=== PATIENT | male | born 1975 | race African-American/Black ===

== ENCOUNTER 2024-02-29 16:24 | Emergency (ER) | payer OTHER, SELFPAY ==
[2024-02-29] MEDS ORDERED: GABAPENTIN 300 MG CAP ONE (17:07)
[2024-02-29] MEDS ORDERED: KETOROLAC 30 MG/ML INJ ONE (17:07)
[2024-02-29] MEDS ORDERED: CYCLOBENZAPRINE 10 MG TAB ONE (17:07)
--- NOTE | 2024-02-29 17:25 | EDPHYS ---
Physician Documentation [facility] Name: Edis Kurtz Age: 48 yrs Sex: Male : 1975 Arrival Date: 02/29/2024 Time: 16:24 Bed 20 Private MD: ED Physician Ramón Dan HPI: 02/28 17:02 This 48 yrs old Black Male presents to ER via Ambulatory with complaints of Pain. rn 17:02 The symptoms are located in the low back. Onset: The symptoms/episode began/occurred at rn an unknown time. The pain radiates to the buttocks. Associated signs and symptoms: Pertinent negatives: abdominal pain, chest pain, dysuria, hematuria, incontinence, nausea, numbness, tingling, urinary retention. Modifying factors: The patient symptoms are alleviated by nothing, the patient symptoms are aggravated by any movement, bending. Severity of symptoms: At their worst the symptoms were moderate, in the emergency department the symptoms are unchanged. The patient has experienced similar episodes in the past. The patient has not recently seen a physician. Patient reports right lower back pain and buttock pain, has had it for years, has chronic back pain, not improving this time with the regular treatments. Has tried lidocaine patches and [id number] medication and not working. Worse at work, walks a lot, spends a lot of time on his feet and moving heavy C arm. Denies direct trauma or fall. No bowel or bladder issues. No weakness. Same pain that he has had in the past location just not improving this time around.. 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 - Infectious Disease History:: Denies. - Social history:: Smoking status: Patient denies any tobacco usage or history of. - Family history:: not pertinent. - Hospitalizations: : No recent hospitalization is reported. ROS: 17:02 Constitutional: Negative for fever, chills, and weight loss, Neck: Negative for injury, rn pain, and swelling, Cardiovascular: Negative for chest pain, palpitations, and edema, Respiratory: Negative for shortness of breath, cough, wheezing, and pleuritic chest pain, Abdomen/GI: Negative for abdominal pain, nausea, vomiting, diarrhea, and constipation, Back: Positive for back pain, negative for injury : Negative for injury, bleeding, discharge, and swelling, MS/Extremity: Negative for injury and deformity, Skin: Negative for injury, rash, and discoloration, Neuro: Negative for headache, weakness, numbness, tingling, and seizure, Exam: 17:02 Constitutional: This is a well developed, well nourished patient who is awake, alert, rn and in no acute distress. Ambulatory to room without assistance Back: No midline spinal tenderness. Mild right lower back and pain in area just above right gluteus. MS/ Extremity: Pulses equal, no cyanosis. Neurovascular intact. Full, normal range of motion. Equal circumference. Neuro: Awake and alert. Motor strength 5/5 in all extremities. Sensory grossly intact. Vital Signs: 16:35 BP 142 / 103; Pulse 110; Resp 16; Temp 97.1; Pulse Ox 99% ; ko1 17:37 BP 140 / 90; Pulse 100; Resp 19 S; Pulse Ox 99% on R/A; Pain 6/10; kc6 17:37 Pain Scale: Adult kc6 MDM: 16:39 Medical Screening Exam initiated rn 17:24 Differential diagnosis: arthritis, chronic back pain, Sacroiliitis, neuropathy, rn radiculopathy. Data reviewed: vital signs, nurses notes, and as a result, I will discharge patient. Counseling: I had a detailed discussion with the patient and/or guardian regarding the historical points, exam findings, and any diagnostic results supporting the discharge/admit diagnosis, the need for outpatient follow up, to return to the emergency department if symptoms worsen or persist or if there are any questions or concerns that arise at home. Response to treatment: the patient's symptoms have mildly improved after treatment, and as a result, I will discharge patient. Special discussion: I discussed with the patient/guardian in detail that at this point there is no indication for admission to the hospital. It is understood, however, that if the symptoms persist or worsen the patient needs to return immediately for re-evaluation. Based on the history and exam findings, there is no indication for further emergent testing or inpatient evaluation. I discussed with the patient/guardian the need to see the back specialist for further evaluation of the symptoms. I discussed with the patient/guardian the need to see the primary care provider for further evaluation of the symptoms. Administered Medications: 17:12 Drug: Ketorolac IM 30 mg IM once Route: IM; Site: left deltoid; kc6 17:36 Follow up: Response: No adverse reaction; Pain is decreased kc6 17:12 Drug: Gabapentin PO 300 mg PO once Route: PO; kc6 17:36 Follow up: Response: No adverse reaction kc6 17:12 Drug: Cyclobenzaprine PO 10 mg PO once Route: PO; kc6 17:36 Follow up: Response: No adverse reaction; Pain is decreased kc6 Disposition Summary: 02/29/24 17:25 Discharge Ordered Notes: Location: Home rn Problem: an ongoing problem rn Symptoms: have improved rn Condition: Stable rn Diagnosis - Sacroiliitis, not elsewhere classified rn Followup: rn - With: Private Physician - When: As needed - Reason: Recheck today's complaints, Re-evaluation by your physician Discharge Instructions: - Discharge Summary Sheet rn - Sacroiliac Joint Dysfunction rn Forms: - Medication Reconciliation Form rn - Antibiotic rn medication - Prescription Opioid Use rn - Patient Portal Instructions rn - Leadership Thank You Letter rn Prescriptions: - gabapentin 100 mg Oral capsule - take 1 capsule ORAL route 2 times per day As needed; 20 capsule; Refills: 0, rn Product Selection Permitted - Cyclobenzaprine 10 mg Oral tablet - take 1 tablet ORAL route once daily at bedtime As needed; 14 tablet; Refills: rn 0, Product Selection Permitted - Diclofenac Sodium 75 mg Oral tablet, delayed release (enteric coated) - take 1 tablet ORAL route 2 times per day As needed; 30 tablet; Refills: 0, rn Product Selection Permitted Signatures: Ramón Dan MD MD rn Campbell, Kaitlyn RN RN kc6 Agnes Price RN RN ko1
--- NOTE | 2024-02-29 17:25 | ER ---
Nurse's Notes [facility] Name: Edis Kurtz Age: 48 yrs Sex: Male : 1975 Arrival Date: 02/29/2024 Time: 16:24 Bed 20 Private MD: Diagnosis: Sacroiliitis, not elsewhere classified Presentation: 02/28 16:35 Chief complaint: Patient states: back pain, has back issues but it hurts more today. ko1 Coronavirus screen: At this time, the client does not indicate any symptoms associated with coronavirus-19. Ebola Screen: No symptoms or risks identified at this time. Initial Sepsis Screen: Does the patient meet any 2 criteria? No. Patient's initial sepsis screen is negative. Does the patient have a suspected source of infection? No. Patient's initial sepsis screen is negative. Risk Assessment: Do you want to hurt yourself or someone else? Patient reports no desire to harm self or others. Onset of symptoms is unknown. 16:35 Method Of Arrival: Ambulatory ko1 16:35 Acuity: RYANN 4 ko1 Triage Assessment: 16:38 General: Appears in no apparent distress. Behavior is calm, cooperative, appropriate ko1 for age. Pain: Complains of pain in back. 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 - Infectious Disease History:: Denies. - Social history:: Smoking status: Patient denies any tobacco usage or history of. - Family history:: not pertinent. - Hospitalizations: : No recent hospitalization is reported. Screenin:13 [facility] ED Fall Risk Assessment (Adult) History of falling in the last 3 months, kc6 including since admission No falls in past 3 months (0 pts) Confusion or Disorientation No (0 pts) Intoxicated or Sedated No (0 pts) Impaired Gait No (0 pts) Mobility Assist Device Used No (0 pt) Altered Elimination No (0 pt) Score/Fall Risk Level 0 - 2 = Low Risk Oriented to surroundings. Abuse screen: Denies threats or abuse. Denies injuries from another. Nutritional screening: No deficits noted. Tuberculosis screening: No symptoms or risk factors identified. Assessment: 17:12 General: Appears in no apparent distress. comfortable, well groomed, well developed, pt kc6 laying prone on the stretcher. Behavior is calm, cooperative, appropriate for age. Pain: Complains of pain in buttocks and back. Neuro: Level of Consciousness is awake, alert, obeys commands, Oriented to person, place, time, situation, Appropriate for age. Cardiovascular: Capillary refill < 3 seconds. Respiratory: Airway is patent Trachea midline Respiratory effort is even, unlabored, Respiratory pattern is regular, symmetrical. GI: No signs and/or symptoms were reported involving the gastrointestinal system. : No signs and/or symptoms were reported regarding the genitourinary system. EENT: No signs and/or symptoms were reported regarding the EENT system. Derm: No signs and/or symptoms reported regarding the dermatologic system. Skin is intact, is healthy with good turgor, Skin is pink, warm \T\ dry. Musculoskeletal: No signs and/or symptoms reported regarding the musculoskeletal system. Circulation, motion, and sensation intact. Capillary refill < 3 seconds, Range of motion: intact in all extremities. Vital Signs: 16:35 BP 142 / 103; Pulse 110; Resp 16; Temp 97.1; Pulse Ox 99% ; ko1 17:37 BP 140 / 90; Pulse 100; Resp 19 S; Pulse Ox 99% on R/A; Pain 6/10; kc6 17:37 Pain Scale: Adult kc6 ED Course: 16:27 Patient arrived in ED. mg5 16:37 Triage completed. ko1 16:38 Arm band placed on right wrist. Patient placed in an exam room, on a stretcher, on ko1 pulse oximetry, Patient notified of wait time. 16:39 Ramón Dan MD is Attending Physician. rn 17:03 Ros Pimentel, VICENTE is Primary Nurse. kc6 17:13 Patient has correct armband on for positive identification. Bed in low position. Call kc6 light in reach. Side rails up X 1. Adult w/ patient. Pulse ox on. NIBP on. Door closed. Noise minimized. Lights dimmed. Pillow given. 17:13 Patient maintains SpO2 saturation greater than 95% on room air. kc6 17:37 No provider procedures requiring assistance completed. Patient did not have IV access kc6 during this emergency room visit. Administered Medications: 17:12 Drug: Ketorolac IM 30 mg IM once Route: IM; Site: left deltoid; kc6 17:36 Follow up: Response: No adverse reaction; Pain is decreased kc6 17:12 Drug: Gabapentin PO 300 mg PO once Route: PO; kc6 17:36 Follow up: Response: No adverse reaction kc6 17:12 Drug: Cyclobenzaprine PO 10 mg PO once Route: PO; kc6 17:36 Follow up: Response: No adverse reaction; Pain is decreased kc6 Medication: 17:37 VIS not applicable for this client. kc6 Outcome: 17:25 Discharge ordered by . rn 17:37 Discharged to home ambulatory, kc6 17:37 Condition: good 17:37 Discharge instructions given to patient, Instructed on discharge instructions, follow up and referral plans. medication usage, Demonstrated understanding of instructions, follow-up care, medications, Prescriptions given X 3, 17:37 Patient left the ED. kc6 Signatures: Ramón Dan MD MD rn Campbell, Kaitlyn RN RN kc6 Agnes Price RN RN ko1 Krissy Rosario 5
[2024-02-29 17:41] VITALS: TEMP 97.1; O2SAT 99
[2024-02-29 17:42] VITALS: BP 140/90
== END 2024-02-29 17:37 | disposition home or self-care (01) ==
LOC: ER 16:24
DX: M46.1 Sacroiliitis, not elsewhere classified (principal)
CPT/HCPCS: 96372; 99284